=== PATIENT | female | born 1975 | race African-American/Black ===

== ENCOUNTER 2023-01-30 08:49 | Outpatient (CLI) | payer BC | END 2023-01-30 08:50 | disposition home or self-care (01) | LOC: CSHMAMMO 08:49 | PROVIDERS: ATTEND Nurse Practitioner Family | DX: Z12.31 Encounter for screening mammogram for malignant neoplasm of breast (principal) | CPT/HCPCS: 77063; 77067 ==

== ENCOUNTER 2024-03-30 15:17 | Outpatient (CLI) | payer BC | END 2024-03-30 15:18 | disposition home or self-care (01) | LOC: CSHMRI 15:17 | PROVIDERS: ATTEND Psychiatry & Neurology Neurology | DX: R51.9 Headache, unspecified (principal); R90.82 White matter disease, unspecified | CPT/HCPCS: 70551 ==

== ENCOUNTER 2025-02-19 08:55 | Outpatient (CLI) | payer OTHER | END 2025-02-19 08:56 | disposition home or self-care (01) | LOC: CSHMAMMO 08:55 | PROVIDERS: ATTEND Nurse Practitioner Family | DX: Z12.31 Encounter for screening mammogram for malignant neoplasm of breast (principal) | CPT/HCPCS: 77063; 77067 ==